=== PATIENT | female | born 1985 | race Caucasian/White ===

== ENCOUNTER → 2017-12-17 | Outpatient (CLI) | payer OTHER ==
[~2017-12-17] MED LIST: HEPARIN SO5000 UNITS SQ; LOVENOX100 MG/1 M SC; MAGNESIUM250 MG PO; OXYCODONE HCL5 MG PO; PRENATAL TABLE1 EAC3 PO; TYLENOL EXTRA500 MG PO
== END | disposition home or self-care (01) ==
LOC: RAD 12:40
DX: M54.2 Cervicalgia (principal)
CPT/HCPCS: 72040

== ENCOUNTER → 2018-05-18 | Outpatient (CLI) | payer OTHER | END | disposition home or self-care (01) | LOC: RAD 08:52 | DX: M50.223 Other cervical disc displacement at C6-C7 level (principal) | CPT/HCPCS: 72141 ==